=== PATIENT | female | born 1965 | race Caucasian/White ===

== ENCOUNTER 2020-08-25 13:50 | Inpatient (IN) | payer MEDICARE, OTHER ==
[~2020-08-25] VITALS: Ht 149.9 cm; Wt 86.2 kg
[~2020-08-25 13:50] MED LIST: ALDACTONE25 MG PO; ALLEGRA ALLERG180 MG PO; ALPRAZOLAM0.5 MG PO; B COMPLEX1 EACH PO; B12 PO; BIOTIN2500 MCG PO; CARAFATE1 GM PO; CELEXA40 MG PO; CITALOPRAM HBR40 MG PO; DEXILANT60 MG PO; ELAVIL 50 MG TA50 MG PO; ESTRACE0.5 MG PO; ESTRACE1 MG PO; FLEXERIL 10 MG10 MG PO; IMDUR ER TAB 3030 MG PO; IMITREX100 MG PO; KEFLEX CAP 500500 MG PO; LASIX20 MG PO; LIPITOR TAB 1010 MG PO; LOPRESSOR 25 MG25 MG PO; MEDROXYPROGEST2.5 MG PO; MEGA BIOTIN10000 MCG PO; METFORMIN HCL500 MG PO; MOBIC15 MG PO; NORVASC10 MG PO; PHENERGAN 25 MG25 M1 PO; PROTONIX40 MG PO; PROVERA10 MG PO; ROBAXIN-750750 MG PO; TIZANIDINE HCL2 MG PO; TRAMADOL HCL E100 MG PO; TROKENDI XR200 MG PO; VENTOLIN/PROVE0.5 ML INH; VIT D PO
[2020-08-25 16:14] LABS: RED BLOOD COUNT 4.3 M/UL (4.00-5.10)
[2020-08-25 16:43] LABS: BUN/CREATININE RATIO 20 (0-10)
[2020-08-25] MEDS ORDERED: CYMBALTA60 MG PO (23:14)
[2020-08-25] MEDS ORDERED: DEXILANT60 MG PO (23:14)
[2020-08-25] MEDS ORDERED: MATZIM LA360 MG PO (23:15)
[2020-08-25] MEDS ORDERED: TIZANIDINE HCL2 M1 PO (23:16)
[2020-08-25] MEDS ORDERED: JANUVIA 100 MG100 MG PO (23:16)
[2020-08-25] MEDS ORDERED: TRAMADOL HCL50 MG PO (23:17)
[2020-08-25] MEDS ORDERED: MACROBID 100 M100 MG PO (23:18)
[2020-08-26 03:42] LABS: HEMOGLOBIN 11.5 gm/dl (12.3-15.3); RED BLOOD COUNT 4.11 M/UL (4.00-5.10); WHITE BLOOD COUNT 4.5 K/UL (4.5-11.0)
[2020-08-26 03:59] LABS: BUN/CREATININE RATIO 22 (0-10)
[2020-08-26] MEDS ORDERED: DULOXETINE HCL60 MG PO (14:15)
[2020-08-26] MEDS ORDERED: BOTOX200 UNIT INJ (14:17)
[2020-08-26] MEDS ORDERED: MELOXICAM15 MG PO (14:22)
[2020-08-26] MEDS ORDERED: ZINC50 M2 PO (14:23)
[2020-08-26] MEDS ORDERED: VITAMIN C250 MG PO (14:23)
[2020-08-26] MEDS ORDERED: VITAMIN D 40400 UNIT PO (14:24)
[2020-08-26] MEDS ORDERED: COLLAGEN PLUS1 EACH PO (14:25)
[2020-08-26] MEDS ORDERED: GLUCOPHAGE500 MG PO (17:58)
[2020-08-26] MEDS ORDERED: ZANAFLEX4 MG PO (18:00)
[2020-08-26] MEDS ORDERED: SINGULAIR10 MG PO (22:02)
[2020-08-26] MEDS ORDERED: ALLEGRA ALLERG180 MG PO (23:13)
[2020-08-26] MEDS ORDERED: ELAVIL 50 MG TA50 MG PO (23:14)
[2020-08-26] MEDS ORDERED: GLUCOTROL 10 MG10 MG PO (23:15)
[2020-08-26] MEDS ORDERED: HYDROXYZINE HCL25 MG PO (23:15)
[2020-08-26] MEDS ORDERED: PRAVACHOL20 MG PO (23:16)
[2020-08-26] MEDS ORDERED: TROKENDI XR200 MG PO (23:17)
[2020-08-26] MEDS ORDERED: UBRELVY50 MG PO (23:19)
[2020-08-26] MEDS ORDERED: MIRAPEX0.5 MG PO (23:19)
[2020-08-26] MEDS ORDERED: ULTRAM50 MG PO (23:46)
[2020-08-28 11:19] LABS: HEMOGLOBIN 10.9 gm/dl (12.3-15.3); RED BLOOD COUNT 3.96 M/UL (4.00-5.10)
[2020-08-28 11:20] LABS: WHITE BLOOD COUNT 6.7 K/UL (4.5-11.0)
[2020-08-28 12:29] LABS: BUN/CREATININE RATIO 18 (0-10)
--- NOTE | 2020-08-28 14:53 | NUR ---
I CALLED [facility] AND THEY REPORTED THAT THE PLASMA IS NOT THERE YET.
[2020-08-29 06:37] LABS: HEMOGLOBIN 10.6 gm/dl (12.3-15.3); RED BLOOD COUNT 3.81 M/UL (4.00-5.10); WHITE BLOOD COUNT 6.5 K/UL (4.5-11.0)
[2020-08-29 07:03] LABS: BUN/CREATININE RATIO 17 (0-10)
[2020-08-30 06:40] LABS: HEMOGLOBIN 11.5 gm/dl (12.3-15.3); RED BLOOD COUNT 4.23 M/UL (4.00-5.10); WHITE BLOOD COUNT 8.2 K/UL (4.5-11.0)
[2020-08-30 07:21] LABS: BUN/CREATININE RATIO 18 (0-10)
[2020-08-30] MEDS ORDERED: DECADRON6 MG PO (11:21)
[2020-08-30] MEDS ORDERED: HYDRALAZINE HCL25 MG PO (11:21)
[2020-08-30] MEDS ORDERED: OMNICEF 300 MG300 MG PO (11:22)
[2020-08-30] MEDS ORDERED: DEX4 GLUCOSE4 GM PO (11:29)
[2020-08-30] MEDS ORDERED: PROAIR HFA8.5 GM INH (11:36)
--- NOTE | 2020-08-30 12:53 | NUR ---
PATIENT'S 02 SAT'S DROP BELOW 88% ON EXERTION.
== END 2020-08-30 15:12 | disposition home or self-care (01) | DRG 177 ==
LOC: ER1 13:50 → CDU 17:45 → MED SURG 4 17:45
PROVIDERS: Emergency Medicine; Internal Medicine; ADMIT Internal Medicine
PROC: XW033E5 Introduction of Remdesivir Anti-infective into Peripheral Vein, Percutaneous Approach, New Technology Group 5 (ICD-10-PCS; 2020-08-25)
PROC: XW13325 Transfusion of Convalescent Plasma (Nonautologous) into Peripheral Vein, Percutaneous Approach, New Technology Group 5 (ICD-10-PCS; principal; 2020-08-27)
DX: U07.1 COVID-19 (principal); J12.82 Pneumonia due to coronavirus disease 2019; J96.01 Acute respiratory failure with hypoxia; J15.9 Unspecified bacterial pneumonia; F11.20 Opioid dependence, uncomplicated; J98.11 Atelectasis; E11.9 Type 2 diabetes mellitus without complications; G89.29 Other chronic pain; E78.5 Hyperlipidemia, unspecified; M79.7 Fibromyalgia; M06.9 Rheumatoid arthritis, unspecified; E66.01 Morbid (severe) obesity due to excess calories; F32.9 Major depressive disorder, single episode, unspecified; Z79.899 Other long term (current) drug therapy; Z68.38 Body mass index [BMI] 38.0-38.9, adult; D53.9 Nutritional anemia, unspecified; I10 Essential (primary) hypertension; E11.649 Type 2 diabetes mellitus with hypoglycemia without coma; M62.838 Other muscle spasm; J30.9 Allergic rhinitis, unspecified; Z28.21 Immunization not carried out because of patient refusal; Z79.84 Long term (current) use of oral hypoglycemic drugs
CPT/HCPCS: 0240U; 36415; 36600; 71045; 80048; 80053; 82803; 82962; 83880; 85025; 85027; 86900; 86901; 86927; 93005; 96365; 96366; 96368; 96372; 96375; 99285; J0456; J0696; J1100; J1650; J2405; J7030

== ENCOUNTER → 2020-09-05 | Outpatient (CLI) | payer MEDICARE, OTHER ==
[~2020-09-05] MED LIST changes: +BOTOX200 UNIT INJ; +COLLAGEN PLUS1 EACH PO; +CYMBALTA60 MG PO; +DECADRON6 MG PO; +DEX4 GLUCOSE4 GM PO; +DULOXETINE HCL60 MG PO; +GLUCOPHAGE500 MG PO; +GLUCOTROL 10 MG10 MG PO; +HYDRALAZINE HCL25 MG PO; +HYDROXYZINE HCL25 MG PO; +JANUVIA 100 MG100 MG PO; +MACROBID 100 M100 MG PO; +MATZIM LA360 MG PO; +MELOXICAM15 MG PO; +MIRAPEX0.5 MG PO; +OMNICEF 300 MG300 MG PO; +PRAVACHOL20 MG PO; +PROAIR HFA8.5 GM INH; +SINGULAIR10 MG PO; +TIZANIDINE HCL2 M1 PO; +TRAMADOL HCL50 MG PO; +UBRELVY50 MG PO; +ULTRAM50 MG PO; +VITAMIN C250 MG PO; +VITAMIN D 40400 UNIT PO; +ZANAFLEX4 MG PO; +ZINC50 M2 PO
== END ==
LOC: RAD 14:22
DX: U07.1 COVID-19 (principal); J12.82 Pneumonia due to coronavirus disease 2019
CPT/HCPCS: 71046

== ENCOUNTER → 2021-07-08 | Outpatient (CLI) | payer MEDICARE, OTHER | LOC: KOH-I 14:11 | DX: J18.9 Pneumonia, unspecified organism (principal) | CPT/HCPCS: 71046 ==

== ENCOUNTER → 2021-08-26 | Outpatient (CLI) | payer MEDICARE, OTHER ==
[~2021-08-26] MED LIST changes: +ALBUTEROL2.5 MG/3 M INH; +ASPIRIN 325MG325 MG PO; +DILTIAZEM 24HR360 MG PO; +FAMOTIDINE20 MG PO; +GABAPENTIN100 MG PO; +GLIPIZIDE ER10 MG PO; +GLUCOPHAGE 500500 MG PO; -GLUCOPHAGE500 MG PO; +JARDIANCE10 MG PO; +LINZESS290 MCG PO; +MIRAPEX ER1.5 MG PO; -MIRAPEX0.5 MG PO; +MOTEGRITY2 MG PO; +NURTEC ODT75 MG PO; +UBRELVY100 MG PO; +VISTARIL25 MG PO; +VITAMIN B-12500 MCG PO; +VITAMIN D325 MCG PO
== END ==
LOC: EMI 09:44
DX: M47.26 Other spondylosis with radiculopathy, lumbar region (principal)
CPT/HCPCS: 72148

== ENCOUNTER → 2021-09-17 | Outpatient (CLI) | payer MEDICARE, OTHER ==
[~2021-09-17] MED LIST changes: +ZOFRAN 4 MG TAB4 MG PO
[2021-09-17 10:04] LABS: HEMOGLOBIN 11.4 gm/dl (12.3-15.3); RED BLOOD COUNT 4.75 M/UL (4.00-5.10); WHITE BLOOD COUNT 7.1 K/UL (4.5-11.0)
[2021-09-17 11:07] LABS: BUN/CREATININE RATIO 12 (0-10)
[2021-09-18 07:12] LABS: ANTISTREPTOLYSIN O AB 73.5 IU/mL (0.0-200.0); RHEUMATOID ARTHRITIS FACTOR <10.0 IU/mL (<14.0); VITAMIN D, 25-HYDROXY 33.5 ng/mL (30.0-100.0)
[2021-09-18 10:14] LABS: CREATININE, URINE 65.1 mg/dL (Not Estab.)
== END ==
LOC: LAB 08:45
PROVIDERS: Nurse Practitioner Family
DX: R73.9 Hyperglycemia, unspecified (principal); J45.909 Unspecified asthma, uncomplicated; R07.89 Other chest pain; M54.2 Cervicalgia; M79.7 Fibromyalgia; I10 Essential (primary) hypertension; E55.9 Vitamin D deficiency, unspecified; R53.83 Other fatigue; D50.9 Iron deficiency anemia, unspecified; R10.13 Epigastric pain; M25.50 Pain in unspecified joint; R07.9 Chest pain, unspecified; E78.5 Hyperlipidemia, unspecified
CPT/HCPCS: 36415; 80053; 80061; 81001; 82043; 82570; 82728; 83036; 83540; 83550; 84439; 84443; 84550; 85025; 85652; 86038; 86060; 86431

== ENCOUNTER → 2021-12-01 | Outpatient (CLI) | payer MEDICARE, OTHER | LOC: NM 11-19 09:00 | DX: R10.84 Generalized abdominal pain (principal); R14.0 Abdominal distension (gaseous); R68.81 Early satiety | CPT/HCPCS: 78264 ==

== ENCOUNTER 2021-12-03 11:19 | Emergency (ER) | payer MEDICARE, OTHER ==
[2021-12-03 12:10] LABS: HEMOGLOBIN 14.3 gm/dl (12.3-15.3); RED BLOOD COUNT 5.27 M/UL (4.00-5.10); WHITE BLOOD COUNT 8.5 K/UL (4.5-11.0)
[2021-12-03 12:44] LABS: BUN/CREATININE RATIO 24 (0-10)
[2021-12-03] MEDS ORDERED: REGLAN5 MG PO (15:58)
[2021-12-03] MEDS ORDERED: IMODIUM CAP 2 MG2 MG PO (15:58)
[2021-12-03] MEDS ORDERED: ONDANSETRON ODT4 MG SL (15:58)
== END 2021-12-03 16:29 | disposition home or self-care (01) ==
LOC: ER1 11:19
PROVIDERS: Physician Assistant
DX: R10.31 Right lower quadrant pain (principal); R10.32 Left lower quadrant pain; R19.7 Diarrhea, unspecified; R10.813 Right lower quadrant abdominal tenderness; R10.814 Left lower quadrant abdominal tenderness; K21.9 Gastro-esophageal reflux disease without esophagitis; E11.9 Type 2 diabetes mellitus without complications; E78.5 Hyperlipidemia, unspecified; Z90.710 Acquired absence of both cervix and uterus; Z90.49 Acquired absence of other specified parts of digestive tract; Z87.19 Personal history of other diseases of the digestive system; Z79.899 Other long term (current) drug therapy
CPT/HCPCS: 80053; 81001; 83690; 85025; 87086; 96361; 96374; 96375; 99284; J1885; J2765; J7030; Q9967

== ENCOUNTER → 2022-02-03 | Outpatient (CLI) | payer MEDICARE, OTHER ==
[~2022-02-03] MED LIST changes: +IMODIUM CAP 2 MG2 MG PO; +ONDANSETRON ODT4 MG SL; +REGLAN5 MG PO
== END ==
LOC: EXRD 10:09
DX: R31.9 Hematuria, unspecified (principal)
CPT/HCPCS: 74018

== ENCOUNTER → 2022-02-10 | Outpatient (CLI) | payer MEDICARE, OTHER | LOC: KOH-I 09:45 | DX: R27.0 Ataxia, unspecified (principal) | CPT/HCPCS: 70551 ==

== ENCOUNTER → 2022-03-11 | Outpatient (CLI) | payer MEDICARE, OTHER | LOC: MRI 14:54 | DX: R93.0 Abnormal findings on diagnostic imaging of skull and head, not elsewhere classified (principal) | CPT/HCPCS: 70552; A9577 ==